=== PATIENT | male | born 1945 | race Hispanic/Latino ===

== ENCOUNTER 2019-12-09 16:52 | Emergency (ER) | payer OTHER ==
[2019-12-09] MEDS ORDERED: SODIUM CHLORIDE 0.9% 1000 ML 1,000 ML IV ONE (17:45)
[2019-12-09] MEDS ORDERED: INSULIN REGULAR, HUMAN 100 UNITS/1 ML IV ONE (17:46)
[2019-12-09 18:28] LABS: Basophils % (Auto) 0.9 % (0.0-1.8); Eosinophils # (Auto) 0.3 K/mm3 (0.0-0.4); Eosinophils % (Auto) 7.1 % (0.0-4.3); Hematocrit 36.2 % (35.5-45.6); Hemoglobin 12.2 gm/dl (11.8-15.2); Lymphocytes # (Auto) 0.9 K/mm3 (1.2-5.4); Lymphocytes % (Auto) 24.5 % (13.4-35.0); Mean Corpuscular HGB Conc 34 % (32-34); Mean Corpuscular Volume 91 fl (84-94); Monocytes # (Auto) 0.5 K/mm3 (0.0-0.8); Monocytes % (Auto) 12.7 % (0.0-7.3); Platelet Count 215 K/mm3 (140-440)
[2019-12-09 18:38] LABS: Calcium 9.8 mg/dL (8.4-10.2)
[2019-12-09] MEDS ORDERED: SODIUM CHLORIDE 0.9% 500 ML 500 ML IV ONE (19:26)
[2019-12-09] MEDS ORDERED: LORazepam 1 MG TAB ONE (20:27)
[2019-12-09] MEDS ORDERED: SODIUM CHLORIDE 0.9% 1000 ML 1,000 ML ONE (20:46)
--- NOTE | 2019-12-09 21:46 | Emergency Department Report ---
ED General Adult HPI - General Chief complaint: High BP Stated complaint: HIGH BLOOD SUGAR Time Seen by Provider: 12/09/19 17:44 Source: patient, EMS Mode of arrival: Stretcher Limitations: No Limitations - History of Present Illness Initial comments: Patient is a 74-year-old male with a past medical history of diabetes and dementia who was presenting with hypoglycemia. Patient noted to be somewhat fatigued and tired. Blood sugar read high at his living facility. Patient denies any nausea vomiting diarrhea fevers chills cough cold or congestion or chest pain at this time. - Related Data Allergies Allergy/AdvReac Type Severity Reaction Status Date / Time No Known Allergies Allergy Verified 12/09/19 20:27 ED Review of Systems ROS: Stated complaint: HIGH BLOOD SUGAR Other details as noted in HPI Comment: All other systems reviewed and negative ED Past Medical Hx - Past Medical History Previous Medical History?: Yes Hx Congestive Heart Failure: Yes Hx Diabetes: Yes Hx Dementia: Yes - Surgical History Past Surgical History?: No - Social History Smoking Status: Former Smoker Substance Use Type: None ED Physical Exam - General Limitations: No Limitations General appearance: alert, in no apparent distress - Head Head exam: Present: atraumatic, normocephalic - Eye Eye exam: Present: normal appearance - ENT ENT exam: Present: mucous membranes moist - Neck Neck exam: Present: normal inspection - Respiratory Respiratory exam: Present: normal lung sounds bilaterally. Absent: respiratory distress, wheezes, rales, rhonchi - Cardiovascular Cardiovascular Exam: Present: regular rate, normal rhythm, normal heart sounds. Absent: systolic murmur, diastolic murmur, rubs, gallop - GI/Abdominal GI/Abdominal exam: Present: soft, normal bowel sounds. Absent: distended, tenderness, guarding, rebound - Rectal Rectal exam: Present: deferred - Extremities Exam Extremities exam: Present: normal inspection - Back Exam Back exam: Present: normal inspection - Neurological Exam Neurological exam: Present: alert, oriented X3 - Psychiatric Psychiatric exam: Present: normal affect, normal mood - Skin Skin exam: Present: warm, dry, intact, normal color. Absent: rash ED Course Vital Signs 12/09/19 17:34 Temperature 97.8 F Pulse Rate 64 Respiratory 16 Rate Blood Pressure 149/72 O2 Sat by Pulse 99 Oximetry ED Medical Decision Making - Lab Data Result diagrams: 12/09/19 17:59 12/09/19 17:59 Lab Results 12/09/19 12/09/19 12/09/19 Range/Units 17:54 17:59 17:59 WBC 3.8 L (4.5-11.0) K/mm3 RBC 4.00 (3.65-5.03) M/mm3 Hgb 12.2 (11.8-15.2) gm/dl Hct 36.2 (35.5-45.6) % MCV 91 (84-94) fl MCH 31 (28-32) pg MCHC 34 (32-34) % RDW 14.0 (13.2-15.2) % Plt Count 215 (140-440) K/mm3 Lymph % (Auto) 24.5 (13.4-35.0) % [place] % (Auto) 12.7 H (0.0-7.3) % Eos % (Auto) 7.1 H (0.0-4.3) % Baso % (Auto) 0.9 (0.0-1.8) % Lymph # 0.9 L (1.2-5.4) K/mm3 [place] # 0.5 (0.0-0.8) K/mm3 Eos # 0.3 (0.0-0.4) K/mm3 Baso # 0.0 (0.0-0.1) K/mm3 Seg Neutrophils % 54.8 (40.0-70.0) % Seg Neutrophils # 2.1 (1.8-7.7) K/mm3 Sodium 131 L (137-145) mmol/L Potassium 4.8 (3.6-5.0) mmol/L Chloride 91.0 L (98-107) mmol/L Carbon Dioxide 26 (22-30) mmol/L Anion Gap 19 mmol/L BUN 22 H (9-20) mg/dL Creatinine 1.2 (0.8-1.5) mg/dL Estimated GFR 59 ml/min BUN/Creatinine Ratio 18 % Glucose 423 H (75-100) mg/dL POC Glucose 409 H (70-105) Calcium 9.8 (8.4-10.2) mg/dL 12/09/19 Range/Units 19:47 WBC (4.5-11.0) K/mm3 RBC (3.65-5.03) M/mm3 Hgb (11.8-15.2) gm/dl Hct (35.5-45.6) % MCV (84-94) fl MCH (28-32) pg MCHC (32-34) % RDW (13.2-15.2) % Plt Count (140-440) K/mm3 Lymph % (Auto) (13.4-35.0) % [place] % (Auto) (0.0-7.3) % Eos % (Auto) (0.0-4.3) % Baso % (Auto) (0.0-1.8) % Lymph # (1.2-5.4) K/mm3 [place] # (0.0-0.8) K/mm3 Eos # (0.0-0.4) K/mm3 Baso # (0.0-0.1) K/mm3 Seg Neutrophils % (40.0-70.0) % Seg Neutrophils # (1.8-7.7) K/mm3 Sodium (137-145) mmol/L Potassium (3.6-5.0) mmol/L Chloride (98-107) mmol/L Carbon Dioxide (22-30) mmol/L Anion Gap mmol/L BUN (9-20) mg/dL Creatinine (0.8-1.5) mg/dL Estimated GFR ml/min BUN/Creatinine Ratio % Glucose (75-100) mg/dL POC Glucose 382 H (70-105) Calcium (8.4-10.2) mg/dL - Medical Decision Making Patient was hydrated to treat his hyponatremia. Patient likely with some mild diet dehydration. Glucose did improve after 5 of insulin and IV fluids. After liter infusion his glucose at decreased to 250. Critical care attestation.: If time is entered above; I have spent that time in minutes in the direct care of this critically ill patient, excluding procedure time. ED Disposition Clinical Impression: Hyperglycemia, Mild dehydration, Hyponatremia Disposition: DC-01 TO HOME OR SELFCARE Is pt being admited?: No Does the pt Need Aspirin: No Condition: Stable Instructions: Diabetic Hyperglycemia (ED), Dehydration (ED) Time of Disposition: 21:46
[2019-12-10] MEDS ORDERED: ACETAMINOPHEN 325 MG TAB ONE (00:07)
[2019-12-10 00:35] VITALS: BP 153/74
[2019-12-10] MEDS ORDERED: ACETAMINOPHEN 325 MG TAB PO ONE (04:13)
[2019-12-10] MEDS ORDERED: LORazepam 1 MG TAB PO ONE (04:13)
== END 2019-12-10 | disposition home or self-care (01) ==
LOC: ED 16:52
DX: E11.65 Type 2 diabetes mellitus with hyperglycemia (principal); E86.0 Dehydration; E87.1 Hypo-osmolality and hyponatremia; F03.90 Unspecified dementia, unspecified severity, without behavioral disturbance, psychotic disturbance, mood disturbance, and anxiety; I50.9 Heart failure, unspecified; Z87.891 Personal history of nicotine dependence
CPT/HCPCS: 36415; 80048; 82962; 85025; 96361; 96374; 99284; J7030; J7040; J1815

== ENCOUNTER 2019-12-24 08:00 | Emergency (ER) | payer OTHER ==
[2019-12-24] MEDS ORDERED: SODIUM CHLORIDE 0.9% 500 ML 500 ML IV ONE (09:07)
[2019-12-24 09:52] LABS: Hematocrit 35.8 % (35.5-45.6); Hemoglobin 12.2 gm/dl (11.8-15.2); Mean Corpuscular HGB Conc 34 % (32-34); Mean Corpuscular Volume 89 fl (84-94); Platelet Count 156 K/mm3 (140-440); Red Blood Count 4.04 M/mm3 (3.65-5.03)
--- NOTE | 2019-12-24 09:59 | XRay Report ---
CHEST 1 VIEW INDICATION / CLINICAL INFORMATION: hypertension. COMPARISON: None available. FINDINGS: SUPPORT DEVICES: None. HEART / MEDIASTINUM: No significant abnormality. LUNGS / PLEURA: No significant pulmonary or pleural abnormality. No pneumothorax. ADDITIONAL FINDINGS: No significant additional findings. IMPRESSION: 1. No significant change Signer Name: Randy Alonzo MD Signed: 12/24/2019 9:55 AM Workstation Name: [id number]
[2019-12-24 10:01] LABS: Basophils % (Auto) 0.4 % (0.0-1.8); Eosinophils # (Auto) 0.1 K/mm3 (0.0-0.4); Eosinophils % (Auto) 1.5 % (0.0-4.3); Lymphocytes # (Auto) 1.2 K/mm3 (1.2-5.4); Lymphocytes % (Auto) 14.9 % (13.4-35.0); Monocytes # (Auto) 0.7 K/mm3 (0.0-0.8)
[2019-12-24 10:04] LABS: INR 0.95 (0.87-1.13)
[2019-12-24 10:05] LABS: Partial Thromboplastin Time 25.6 Sec. (24.2-36.6)
[2019-12-24 10:18] LABS: Albumin 4.1 g/dL (3.9-5); Bilirubin,Direct 0.3 mg/dL (0-0.2); Calcium 9.7 mg/dL (8.4-10.2)
[2019-12-24 10:37] LABS: Bilirubin,Urine NEG (Negative); Blood,Urine NEG (Negative); Color,Urine Yellow (Yellow); Hyaline Casts,Urine 1 /LPF; Mucus,Urine FEW /HPF; Protein,Urine <15 mg/dL mg/dL (Negative); Urobilinogen,Urine < 2.0 mg/dL (<2.0)
--- NOTE | 2019-12-24 11:27 | Emergency Department Report ---
ED General Adult HPI - General Chief complaint: Abdominal Pain Stated complaint: DIARRHEA 3X DAYS Time Seen by Provider: 12/24/19 09:02 Source: patient, EMS Mode of arrival: Stretcher Limitations: No Limitations - History of Present Illness Initial comments: 74-year-old man coming from [facility] I believe it is in assisted living with diarrhea and left upper quadrant pain of 4 days duration. Patient does appear to have a substantial degree of dementia. He states he has had this left upper quadrant pain for years but nobody has found the cause. He does not specifically complain of diarrhea. He does not complain of vomiting, fever or chills. He is a very poor historian. -: unknown Location: abdomen Radiation: non-radiation Quality: aching Consistency: intermittent Improves with: none Worsens with: none Associated Symptoms: denies other symptoms - Related Data Allergies Allergy/AdvReac Type Severity Reaction Status Date / Time No Known Allergies Allergy Verified 12/09/19 20:27 ED Review of Systems ROS: Stated complaint: DIARRHEA 3X DAYS Other details as noted in HPI Comment: Unobtainable due to pts medical conditions (The patient denies other systems complaints but he has substantial dementia) ED Past Medical Hx - Past Medical History Hx CVA: Yes Hx Congestive Heart Failure: Yes Hx Diabetes: Yes Hx Dementia: Yes - Surgical History Additional Surgical History: BL foot - Social History Smoking Status: Former Smoker Other Social History: Assisted living ED Physical Exam - General Limitations: No Limitations General appearance: alert, in no apparent distress - Head Head exam: Present: atraumatic, normocephalic - Eye Eye exam: Present: normal appearance. Absent: scleral icterus - ENT ENT exam: Present: mucous membranes moist - Neck Neck exam: Present: normal inspection - Respiratory Respiratory exam: Present: normal lung sounds bilaterally. Absent: respiratory distress - Cardiovascular Cardiovascular Exam: Present: regular rate, normal rhythm. Absent: systolic murmur, diastolic murmur, rubs, gallop - GI/Abdominal GI/Abdominal exam: Present: soft, normal bowel sounds. Absent: distended, te nderness, guarding, rebound, rigid - Rectal Rectal exam: Present: deferred - Extremities Exam Extremities exam: Present: normal inspection - Back Exam Back exam: Present: normal inspection - Neurological Exam Neurological exam: Present: alert, oriented X3, CN II-XII intact. Absent: motor sensory deficit - Psychiatric Psychiatric exam: Present: normal affect, normal mood - Skin Skin exam: Present: warm, dry, intact, normal color. Absent: rash ED Course Vital Signs 12/24/19 08:35 Temperature 97.8 F Pulse Rate 70 Respiratory 20 Rate Blood Pressure 136/63 O2 Sat by Pulse 99 Oximetry - Reevaluation(s) Reevaluation #1: Patient has remained stable. He is given IV fluid. A plain CT of his abdomen is ordered noting his worsening creatinine. He is reached for to the hospitalist for acute kidney injury/diabetes. A C. difficile was ordered for his diarrhea. 12/24/19 12:28 Reevaluation #2: Patient accepted by [facility] for transfer to [facility]. Dr. Grimes accepting physician. CT is completed. I do not anticipate any additional need for stabilization here. We will review the results. 12/24/19 13:30 ED Medical Decision Making - Lab Data Result diagrams: 12/24/19 09:20 12/24/19 09:20 Laboratory Results - last 24 hr 12/24/19 12/24/19 12/24/19 09:20 09:20 09:20 WBC 8.4 RBC 4.04 Hgb 12.2 Hct 35.8 MCV 89 MCH 30 MCHC 34 RDW 14.0 Plt Count 156 Lymph % (Auto) 14.9 [place] % (Auto) 9.0 H Eos % (Auto) 1.5 Baso % (Auto) 0.4 Lymph # 1.2 [place] # 0.7 Eos # 0.1 Baso # 0.0 Seg Neutrophils % 74.2 H Seg Neutrophils # 6.0 PT 12.8 INR 0.95 APTT 25.6 VBG pH Sodium 132 L Potassium 4.3 Chloride 89.5 L Carbon Dioxide 24 Anion Gap 23 BUN 26 H Creatinine 1.6 H Estimated GFR 42 BUN/Creatinine Ratio 16 Glucose 212 H Lactic Acid Calcium 9.7 Magnesium Total Bilirubin 1.00 Direct Bilirubin 0.3 H Indirect Bilirubin 0.7 AST 42 H ALT 24 Alkaline Phosphatase 104 NT-Pro-B Natriuret Pep Total Protein 6.9 Albumin 4.1 Albumin/Globulin Ratio 1.5 Lipase 4 L Urine Color Urine Turbidity Urine pH Ur Specific [place] Urine Protein Urine Glucose (UA) Urine Ketones Urine Blood Urine Nitrite Urine Bilirubin Urine Urobilinogen Ur Leukocyte Esterase Urine WBC (Auto) Urine RBC (Auto) U Epithel Cells (Auto) Hyaline Casts Urine Mucus Blood Type Antibody Screen 12/24/19 12/24/19 12/24/19 09:20 09:20 09:20 WBC RBC Hgb Hct MCV MCH MCHC RDW Plt Count Lymph % (Auto) [place] % (Auto) Eos % (Auto) Baso % (Auto) Lymph # [place] # Eos # Baso # Seg Neutrophils % Seg Neutrophils # PT INR APTT VBG pH Sodium Potassium Chloride Carbon Dioxide Anion Gap BUN Creatinine Estimated GFR BUN/Creatinine Ratio Glucose Lactic Acid 1.00 Calcium Magnesium 1.90 Total Bilirubin Direct Bilirubin Indirect Bilirubin AST ALT Alkaline Phosphatase NT-Pro-B Natriuret Pep 1524 H Total Protein Albumin Albumin/Globulin Ratio Lipase Urine Color Urine Turbidity Urine pH Ur Specific [place] Urine Protein Urine Glucose (UA) Urine Ketones Urine Blood Urine Nitrite Urine Bilirubin Urine Urobilinogen Ur Leukocyte Esterase Urine WBC (Auto) Urine RBC (Auto) U Epithel Cells (Auto) Hyaline Casts Urine Mucus Blood Type A POSITIVE Antibody Screen Negative 12/24/19 12/24/19 10:07 10:22 WBC RBC Hgb Hct MCV MCH MCHC RDW Plt Count Lymph % (Auto) [place] % (Auto) Eos % (Auto) Baso % (Auto) Lymph # [place] # Eos # Baso # Seg Neutrophils % Seg Neutrophils # PT INR APTT VBG pH 7.350 Sodium Potassium Chloride Carbon Dioxide Anion Gap BUN Creatinine Estimated GFR BUN/Creatinine Ratio Glucose Lactic Acid Calcium Magnesium Total Bilirubin Direct Bilirubin Indirect Bilirubin AST ALT Alkaline Phosphatase NT-Pro-B Natriuret Pep Total Protein Albumin Albumin/Globulin Ratio Lipase Urine Color Yellow Urine Turbidity Clear Urine pH 5.0 Ur Specific [place] 1.009 Urine Protein <15 mg/dl Urine Glucose (UA) 50 Urine Ketones Neg Urine Blood Neg Urine Nitrite Neg Urine Bilirubin Neg Urine Urobilinogen < 2.0 Ur Leukocyte Esterase Neg Urine WBC (Auto) 2.0 Urine RBC (Auto) 3.0 U Epithel Cells (Auto) < 1.0 Hyaline Casts 1 Urine Mucus Few Blood Type Antibody Screen Critical care attestation.: If time is entered above; I have spent that time in minutes in the direct care of this critically ill patient, excluding procedure time. ED Disposition Clinical Impression: Acute kidney injury, Hyponatremia Abdominal pain Qualifiers: Abdominal location: left upper quadrant Qualified Code(s): R10.12 - Left upper quadrant pain Disposition: DC/TX-70 ANOTHER TYPE HLTHCARE Is pt being admited?: No Does the pt Need Aspirin: No Condition: Stable Referrals: [facility] [Other] - 3-5 Days Time of Disposition: 13:31
[2019-12-24] MEDS ORDERED: SODIUM CHLORIDE 0.9% 1000 ML 1,000 ML IV ONE (11:28)
[2019-12-24 14:59] VITALS: BP 141/87
--- NOTE | 2019-12-24 15:43 | Cat Scan Report ---
CT OF THE ABDOMEN AND PELVIS WITHOUT CONTRAST INDICATION / CLINICAL INFORMATION: Abdominal pain. TECHNIQUE: All CT scans at this location are performed using CT dose reduction for ALARA by means of automated e xposure control. COMPARISON: None available. FINDINGS: ABDOMEN: There are marked atherosclerotic calcifications involving the abdominal aorta and its branch es without aneurysm. There is a 3 mm nonobstructive calculus in the upper pole of the right kidney. T here is diffuse fatty replacement of the pancreas. The liver, spleen, gallbladder, bile ducts, adrena l glands and left kidney are normal. I see no evidence of bowel obstruction, wall thickening or free air. No adenopathy is seen. The lung bases are clear. PELVIS: There is mild generalized increased density involving the ischiorectal fossa fat. There is pr obable mild diffuse bowel wall thickening involving the rectum. I see no evidence of extraluminal gas or abscess. The distal ureters, urinary bladder and prostate gland are normal. The cecum is located in the right mid-upper abdomen. There is no evidence of diverticulitis or appendicitis. I do not identify a hernia . There is advanced spondylosis. IMPRESSION: 1. Probable proctitis. 2. Small nonobstructive right renal calculus. Signer Name: Kuldeep Valle MD Signed: 12/24/2019 3:38 PM Workstation Name: [id number]
== END 2019-12-24 14:35 | disposition other institution (70) ==
LOC: ED 08:00
DX: N17.9 Acute kidney failure, unspecified (principal); E87.1 Hypo-osmolality and hyponatremia; R10.12 Left upper quadrant pain; I50.9 Heart failure, unspecified; E11.9 Type 2 diabetes mellitus without complications; Z86.73 Personal history of transient ischemic attack (TIA), and cerebral infarction without residual deficits; Z87.891 Personal history of nicotine dependence
CPT/HCPCS: 36415; 71045; 74176; 80048; 80076; 81001; 82010; 82140; 82805; 83690; 83735; 83880; 85025; 85610; 85730; 86850; 86900; 86901; 93005; 93010; 99285; J7040